=== PATIENT | female | born 1980 | race Caucasian/White ===

== ENCOUNTER 2017-01-07 08:51 | Observation (INO) | payer BC, MEDICARE ==
[~2017-01-07] VITALS: Ht 157.5 cm; Wt 74.6 kg
[2017-01-07] MEDS ORDERED: PREN-134 PO (09:05)
[2017-01-07 10:00] VITALS: BP 128/81
== END 2017-01-07 09:20 | disposition home or self-care (01) ==
LOC: 4S 08:51
PROVIDERS: ADMIT Obstetrics & Gynecology; ATTEND Obstetrics & Gynecology
DX: Z34.93 Encounter for supervision of normal pregnancy, unspecified, third trimester (principal); Z3A.34 34 weeks gestation of pregnancy
CPT/HCPCS: 59025; G0378

== ENCOUNTER 2017-01-14 08:05 | Observation (INO) | payer MEDICARE ==
[~2017-01-14 08:05] MED LIST: PREN-134 PO
[2017-01-14 09:21] VITALS: BP 125/80
== END 2017-01-14 09:55 | disposition home or self-care (01) ==
LOC: 4S 08:05
PROVIDERS: ADMIT Obstetrics & Gynecology; ATTEND Obstetrics & Gynecology
DX: Z34.93 Encounter for supervision of normal pregnancy, unspecified, third trimester (principal); Z3A.35 35 weeks gestation of pregnancy
CPT/HCPCS: 59025; G0378

== ENCOUNTER 2017-01-21 08:05 | Observation (INO) | payer MEDICARE ==
[~2017-01-21] VITALS: Ht 157.5 cm; Wt 74.8 kg
[2017-01-21 08:20] VITALS: BP 131/85
== END 2017-01-21 09:00 | disposition home or self-care (01) ==
LOC: 4S 08:05
PROVIDERS: ADMIT Obstetrics & Gynecology; ATTEND Obstetrics & Gynecology
DX: Z34.93 Encounter for supervision of normal pregnancy, unspecified, third trimester (principal); Z3A.36 36 weeks gestation of pregnancy
CPT/HCPCS: 59025; G0378

== ENCOUNTER 2017-01-28 08:00 | Observation (INO) | payer MEDICARE ==
[~2017-01-28] VITALS: Ht 157.5 cm; Wt 75.3 kg
[2017-01-28 08:47] VITALS: BP 129/86
== END 2017-01-28 08:50 | disposition home or self-care (01) ==
LOC: 4S 08:00
PROVIDERS: ADMIT Obstetrics & Gynecology; ATTEND Obstetrics & Gynecology
DX: O26.893 Other specified pregnancy related conditions, third trimester (principal); Z3A.37 37 weeks gestation of pregnancy
CPT/HCPCS: 59025; G0378

== ENCOUNTER 2017-01-31 12:30 | Inpatient (IN) | payer MEDICARE, OTHER ==
[~2017-01-31] VITALS: Ht 154.9 cm; Wt 75.3 kg
[2017-01-31] MEDS ORDERED: OXYTOCIN 30 UNITS/LACT RINGERS 500 ML IV ONE (12:44)
[2017-01-31] MEDS ORDERED: RINGERS SOLUTION,LACTATED 1,000 ML IV PRN (12:44)
[2017-01-31] MEDS ORDERED: CITRIC ACID/SODIUM CITRATE 30 ML SOLUTION UDCUP PO PRN (12:45)
[2017-01-31] MEDS ORDERED: LIDOCAINE HCL/PF 1% 30 ML VIAL INJ PRN (12:45)
[2017-01-31] MEDS ORDERED: METOCLOPRAMIDE HCL 5 MG/ML 2 ML VIAL IVP PRN (12:45)
[2017-01-31 12:57] VITALS: BP 135/87
[2017-01-31 13:33] LABS: BASOPHILS % (AUTO) 0.7 % (0.0-2.0); EOSINOPHILS % (AUTO) 1.2 % (1.0-6.0); HEMOGLOBIN 13.4 g/dL (12.0-16.0); LYMPHOCYTES % (AUTO) 25.7 % (22.0-44.0); MEAN CORPUSCULAR HEMOGLOBIN 30.3 pg (26.0-34.0); MEAN CORPUSCULAR HGB CONC 34.4 G/dL (31.0-37.0); MEAN CORPUSCULAR VOLUME 88 fL (80-100); MONOCYTES # (AUTO) 0.5 K/uL (0.1-1.0); MONOCYTES % (AUTO) 5.9 % (2.0-9.0); NEUTROPHILS # (AUTO) 5.1 K/uL (1.8-7.7); NEUTROPHILS % (AUTO) 66.5 % (40.0-70.0); RED BLOOD CELL COUNT(AUTO) 4.43 MIL/uL (4.00-5.20); RED CELL DISTRIBUTION WIDTH 13.9 % (11.5-14.5); WHITE BLOOD COUNT (AUTO) 7.7 K/uL (4.5-11.0)
[2017-01-31] MEDS: RINGERS SOLUTION,LACTATED 1,000 ML IV SCH ×3 (14:03→21:53)
[2017-01-31] MEDS ORDERED: DINOPROSTONE 10 MG VAGINAL SUPPOSITORY VG ONE (15:45)
[2017-01-31] MEDS ORDERED: OXYGEN THERAPY IH SCH (20:00)
[2017-02-01] MEDS: FentaNYL CITRATE-PF 100 MCG/2 ML VIAL IVP PRN ×2 (04:53→04:59)
[2017-02-01] MEDS ORDERED: OXYTOCIN 30 UNITS/LACT RINGERS 500 ML IV PRN (06:00)
[2017-02-01] MEDS ORDERED: LIDOCAINE HCL 2%/EPI 1:200,000/PF 10 ML VIAL ONE ×2 (11:48→14:18)
[2017-02-01] MEDS ORDERED: FentaNYL/BUPIV 0.125%/NS/PF 200 ML ED ONE (11:49)
[2017-02-01] MEDS ORDERED: OXYTOCIN 10 UNITS/ML VIAL IM ONE (12:00)
[2017-02-01] MEDS ORDERED: EPHEDrine SULFATE 50 MG/ML VIAL IM ONE (12:00)
[2017-02-01] MEDS ORDERED: ONDANSETRON HCL 4 MG/2 ML VIAL IVP ONE (12:00)
[2017-02-01] MEDS ORDERED: FentaNYL/BUPIV 0.125%/NS/PF 200 ML ED PRN (12:16)
[2017-02-01] MEDS ORDERED: DiphenhydrAMINE HCL 50 MG/ML VIAL IVP PRN ×3 (12:30→15:00)
[2017-02-01] MEDS ORDERED: ONDANSETRON HCL 4 MG/2 ML VIAL IVP PRN ×3 (12:30→15:00)
[2017-02-01] MEDS ORDERED: PROMETHAZINE HCL 25 MG/ML VIAL IM PRN (12:30)
[2017-02-01] MEDS ORDERED: NALBUPHINE HCL 10 MG/ML VIAL IVP PRN ×4 (12:30→15:00)
[2017-02-01] MEDS: RINGERS SOLUTION,LACTATED 1,000 ML IV SCH (13:16)
[2017-02-01] MEDS ORDERED: CeFAZolin 2 GM/DEXTROSE 50 ML IV ONE (14:16)
[2017-02-01] MEDS ORDERED: FentaNYL CITRATE-PF 100 MCG/2 ML VIAL ONE (14:16)
[2017-02-01] MEDS ORDERED: MORPHINE SULFATE/PF 0.5 MG/ML 10 ML AMP ONE (14:16)
[2017-02-01] MEDS ORDERED: LIDOCAINE HCL/PF 2% 5 ML VIAL ONE (14:19)
[2017-02-01] MEDS ORDERED: FentaNYL CITRATE-PF 100 MCG/2 ML VIAL IVP PRN ×4 (14:45→15:00)
[2017-02-01] MEDS ORDERED: MEPERIDINE-PF 25 MG/ML SYRINGE IVP PRN (14:45)
[2017-02-01] MEDS ORDERED: KETOROLAC TROMETHAMINE 30 MG/ML VIAL IVP ONE (14:45)
[2017-02-01] MEDS ORDERED: NALOXONE HCL 0.4 MG/ML VIAL IVP PRN (15:00)
[2017-02-01] MEDS ORDERED: GUM MASTIC/STORAX/MSAL/ALCOHOL LIQUID 0.67 ML VIAL TP ONE (15:04)
[2017-02-01] MEDS ORDERED: METHYLERGONOVINE MALEATE 0.2 MG/ML VIAL ONE (15:06)
[2017-02-01] MEDS ORDERED: DEXTROSE 5%-0.45% SODIUM CHL 1,000 ML IV SCH (16:12)
[2017-02-01] MEDS ORDERED: GLYCERIN/WITCH HAZEL LEAF 40 PADS JAR TP PRN (16:15)
[2017-02-01] MEDS ORDERED: OxyCODONE HCL/ACETAMINOPHEN 5-325 MG TABLET PO PRN ×2 (16:15)
[2017-02-01] MEDS ORDERED: KETOROLAC TROMETHAMINE 30 MG/ML VIAL ONE (16:21)
[2017-02-01] MEDS: OXYTOCIN 20 UNITS/LACT RINGERS 1,000 ML IV SCH (17:06)
[2017-02-01] MEDS ORDERED: OXYGEN THERAPY IH SCH ×4 (20:00)
[2017-02-02] MEDS ORDERED: KETOROLAC TROMETHAMINE 30 MG/ML VIAL IVP PRN (00:15)
[2017-02-02] MEDS: OXYTOCIN 20 UNITS/LACT RINGERS 1,000 ML IV SCH (00:24)
[2017-02-02 06:14] LABS: BASOPHILS % (AUTO) 0.3 % (0.0-2.0); EOSINOPHILS % (AUTO) 0.7 % (1.0-6.0); HEMATOCRIT 30.6 % (36-46); HEMOGLOBIN 10.3 g/dL (12.0-16.0); LYMPHOCYTES # (AUTO) 1.7 K/uL (1.0-4.8); LYMPHOCYTES % (AUTO) 13.2 % (22.0-44.0); MEAN CORPUSCULAR HEMOGLOBIN 29.9 pg (26.0-34.0); MEAN CORPUSCULAR HGB CONC 33.6 G/dL (31.0-37.0); MEAN CORPUSCULAR VOLUME 89 fL (80-100); MONOCYTES # (AUTO) 0.6 K/uL (0.1-1.0); MONOCYTES % (AUTO) 4.8 % (2.0-9.0); NEUTROPHILS # (AUTO) 10.2 K/uL (1.8-7.7); RED BLOOD CELL COUNT(AUTO) 3.43 MIL/uL (4.00-5.20); RED CELL DISTRIBUTION WIDTH 13.8 % (11.5-14.5); WHITE BLOOD COUNT (AUTO) 12.6 K/uL (4.5-11.0)
[2017-02-02] MEDS: MAGNESIUM HYDROXIDE SUSPENSION 30 ML UDCUP PO SCH ×2 (08:31→20:19)
[2017-02-02] MEDS: RINGERS SOLUTION,LACTATED 1,000 ML IV SCH (08:31)
[2017-02-02] MEDS: IBUPROFEN 600 MG TABLET PO PRN (20:19)
[2017-02-03] MEDS: IBUPROFEN 600 MG TABLET PO PRN (05:35)
[2017-02-03] MEDS ORDERED: PERCT PO (08:38)
[2017-02-03] MEDS ORDERED: IBUP-2070 PO (08:39)
[2017-02-03] MEDS ORDERED: FERR-89 PO (08:39)
[2017-02-03] MEDS ORDERED: DSS100 PO (08:39)
== END 2017-02-03 09:00 | disposition home or self-care (01) | DRG 765 ==
LOC: 4S 12:30 → OBSVTOIN 12:30 → 4S 02-01 14:29
PROVIDERS: ADMIT Obstetrics & Gynecology; ATTEND Obstetrics & Gynecology
PROC: 10D00Z1 Extraction of Products of Conception, Low, Open Approach (ICD-10-PCS; principal; 2017-02-01)
DX: O77.0 Labor and delivery complicated by meconium in amniotic fluid (principal); O41.03X0 Oligohydramnios, third trimester, not applicable or unspecified; Z37.0 Single live birth; Z3A.37 37 weeks gestation of pregnancy
CPT/HCPCS: 86850; 86900; 86901; J0690; J1885; J2210; J2274; J2405; J2590; J2765; J3010; J3490; J7120